=== PATIENT | male | born 1990 | race African-American/Black ===

== ENCOUNTER 2017-10-24 14:50 | Emergency (ER) | payer SELFPAY ==
[~2017-10-24] VITALS: Ht 190.5 cm; Wt 77.1 kg
[2017-10-24 15:46] LABS: *BILIRUBIN,URIN NEGATIVE (NEGATIVE); *BLOOD, URINE NEGATIVE (NEGATIVE); *CLARITY,URINE CLEAR (CLEAR); *COLOR,URINE YELLOW (YELLOW); *KETONES,URINE NEGATIVE (NEGATIVE); *PROTEIN,URINE NEGATIVE (NEGATIVE); *UROBILINOGEN,URINE 0.2 E.U./dl (NORMAL); LEUKOCYTE ESTERASE ,URINE NEGATIVE (NEGATIVE); NITRITE, URINE NEGATIVE (NEGATIVE); PH,URINE 5.5 (5.0-8.0); UGLUCOSE NEGATIVE (NEGATIVE)
[2017-10-24 15:57] LABS: WBC,URINE 0-3 /HPF (0-3)
[2017-10-24 15:58] LABS: MUCUS,URINE MODERATE /LPF (0-FEW)
[2017-10-24] MEDS ORDERED: CEFTRIAXONE 1 G VIAL IM ONE (16:57)
[2017-10-24] MEDS ORDERED: AZITHROMYCIN 250 MG TABLET PO ONE (17:00)
--- NOTE | 2017-10-24 17:16 | NUR ---
MSE COMPLETED, MEDS ADMINISTERED, PT D/C'D HOME, ACI/RX X1 GIVEN. PT AMBUOLATED W/O DIFF/TOOK ALL BELONGINGS, NO ADVERSE/ALLERGIC RXN NOTED FROM [facility] ADMIN.
[2017-10-24 17:17] VITALS: BP 118/72
[2017-10-24] MEDS ORDERED: AZITHROMYCIN 250 MG TABLET ONE (18:11)
[2017-10-24] MEDS ORDERED: CEFTRIAXONE 1 G VIAL ONE (18:11)
[2017-10-24] MEDS ORDERED: LIDOCAINE HCL 1% 20 ML VIAL ONE (18:11)
[2017-10-27 17:16] LABS: *GC NAA Negative (Negative); *TRIC.VAG. NAA Negative (Negative)
== END 2017-10-24 17:18 | disposition home or self-care (01) ==
LOC: ER 14:50
DX: Z20.2 Contact with and (suspected) exposure to infections with a predominantly sexual mode of transmission (principal); R30.0 Dysuria
CPT/HCPCS: 87491; A4663; J0696; J3490; Q0144

== ENCOUNTER 2018-05-06 14:34 | Emergency (ER) | payer SELFPAY ==
[~2018-05-06] VITALS: Ht 190.5 cm; Wt 88.5 kg
--- NOTE | 2018-05-06 15:40 | NUR ---
URINE SENT TO LAB FOR ANALYSIS.
--- NOTE | 2018-05-06 15:50 | NUR ---
ADMIT A MALE PT TO RM 2B, AMBULATORY WITH A C/O BLOODY DISCHARGE FROM HIS PENIS. DENIES ANY PAIN.
--- NOTE | 2018-05-06 16:05 | NUR ---
Ultrasound at bedside.
--- NOTE | 2018-05-06 16:10 | NUR ---
SEEN AND EXAMINED BY DR NETTLES WITH NEW ORDER. ULTRASOUND OF THE KIDNEYS AND SCROTAL AREA DONE AT THE BEDSIDE.
[2018-05-06 16:31] LABS: *BILIRUBIN,URIN NEGATIVE (NEGATIVE); *BLOOD, URINE Trace-lysed (NEGATIVE); *CLARITY,URINE CLEAR (CLEAR); *COLOR,URINE YELLOW (YELLOW); *KETONES,URINE NEGATIVE (NEGATIVE); *PROTEIN,URINE NEGATIVE (NEGATIVE); *UROBILINOGEN,URINE 0.2 E.U./dl (NORMAL); LEUKOCYTE ESTERASE ,URINE TRACE (NEGATIVE); NITRITE, URINE NEGATIVE (NEGATIVE); PH,URINE 6.5 (5.0-8.0); UGLUCOSE NEGATIVE (NEGATIVE)
[2018-05-06 16:43] LABS: RBC,URINE 0-3 /HPF (0-3)
[2018-05-06 16:44] LABS: MUCUS,URINE MANY /LPF (0-FEW)
--- NOTE | 2018-05-06 17:00 | NUR ---
PT IS BEING DISCHARGED HOME. DR NETTLES SPOKE WITH HIM. DISCHARGE INSTRUCTIONS AND PRESCRIPTIONS GIVEN TO PT WITH GOOD UNDERSTANDING.
--- NOTE | 2018-05-06 17:05 | NUR ---
DISCHARGED HOME AMBULATORY. CONDITION IS STABLE.
[2018-05-06 17:15] VITALS: BP 110/60
[2018-05-08 07:06] LABS: *GC NAA Negative (Negative); *TRIC.VAG. NAA Negative (Negative)
== END 2018-05-06 17:02 | disposition home or self-care (01) ==
LOC: ER 14:38
DX: R31.9 Hematuria, unspecified (principal)
CPT/HCPCS: 76770; 76870; 81001; 87086; 87491; 99285; A4663